=== PATIENT | female | born 1960 | race Caucasian/White ===

== ENCOUNTER 2020-02-28 09:55 | Day surgery (SDC) | payer OTHER, SELFPAY ==
[~2020-02-28] VITALS: Ht 154.9 cm; Wt 86.2 kg
[~2020-02-28 09:55] MED LIST: BLOOD PRESSURE MED
[2020-02-28] MEDS ORDERED: fentaNYL citrate 0.05 MG/ML VIAL ONE (12:19)
[2020-02-28] MEDS ORDERED: MIDAZOLAM 5 MG/5 ML VIAL ONE (12:20)
[2020-02-28] MEDS ORDERED: LIDOCAINE 2% 100 MG/5 ML UJET TP ONE (12:20)
[2020-02-28] MEDS ORDERED: MIDAZOLAM 2 MG/2 ML VIAL IVP ONE (13:50)
[2020-02-28] MEDS ORDERED: fentaNYL citrate 0.05 MG/ML VIAL IVP ONE (13:50)
== END 2020-02-28 13:30 | disposition home or self-care (01) ==
LOC: MDS 09:55 → MFCC 11:41 → MDS 13:30
PROVIDERS: ATTEND Internal Medicine Gastroenterology
DX: K62.5 Hemorrhage of anus and rectum (principal); K64.8 Other hemorrhoids; K59.00 Constipation, unspecified; F17.210 Nicotine dependence, cigarettes, uncomplicated; I10 Essential (primary) hypertension; Z79.899 Other long term (current) drug therapy; Z20.828 Contact with and (suspected) exposure to other viral communicable diseases
CPT/HCPCS: 45378; J2250; J3010; U0003